=== PATIENT | male | born 1940 | race Caucasian/White ===

== ENCOUNTER 2020-09-19 10:23 | Day surgery (SDC) | payer MEDICARE, OTHER ==
[~2020-09-19] VITALS: Ht 165.1 cm; Wt 72.2 kg
[2020-09-19] VITALS (8 sets, daily range): BP systolic 97–130; BP diastolic 60–80
[~2020-09-19 10:23] MED LIST: APIX5TAB3 PO; BACL20TA PO; CARV-50 PO; CHOL50002 PO; DOCU-21 PO; DONE10TA44 PO; FLEC100T35 PO; FLO0.4C PO; FURO-150 PO; GLUC100017; MECO10005 PO; NITR0.4T51 SL; OXYB5TAB16 PO; PANT40TA54 PO; SAW/1TAB2 PO; VENL150C58 PO; VITA-268 PO
[2020-09-19] MEDS ORDERED: cefazolin/dext.iso 2gm/50ml 50 ML IV ONE (10:50)
[2020-09-19] MEDS ORDERED: VANCOMYCIN 1,500MG inj. 1,500 MG in normal saline 500ml IV soln 500 ML IV ONE (10:50)
[2020-09-19] MEDS ORDERED: FLUO-12 PO (11:04)
[2020-09-19] MEDS ORDERED: fentaNYL/PF 50MCG/1 ML 2ML syringe IV ONE (11:10)
[2020-09-19] MEDS ORDERED: MIDAZolam 1mg/ml 10ml vial IV ONE (11:10)
[2020-09-19 12:09] LABS: BASOPHILS # (AUTO) 0.1 X10'3 (0-0.2); BASOPHILS % (AUTO) 1.1 % (0-1); EOSINOPHILS # (AUTO) 0.1 X10'3 (0-0.9); EOSINOPHILS % (AUTO) 1.4 % (0-6); HEMATOCRIT 35.2 % (42.0-52.0); HEMOGLOBIN 11.8 g/dl (14.0-17.9); LYMPHOCYTES # (AUTO) 0.6 X10'3 (1.1-4.8); LYMPHOCYTES % (AUTO) 11.6 % (21-51); MEAN CORPUSCULAR HEMOGLOBIN 33.5 PG (27.0-31.0); MEAN CORPUSCULAR HGB CONC 33.4 g/dL (33.0-36.5); MEAN CORPUSCULAR VOLUME 100.2 FL (78-98); MEAN PLATELET VOLUME 7.8 FL (7.4-10.4); MONOCYTES # (AUTO) 0.8 X10'3 (0-0.9); NEUTROPHILS # (AUTO) 3.4 X10'3 (1.8-7.7); NEUTROPHILS % (AUTO) 69.9 % (42-75); PLATELET COUNT 218 X10'3 (140-440); RED BLOOD COUNT 3.52 X10'6 (4.70-6.10); WHITE BLOOD COUNT 4.9 X10'3 (4.5-11.0)
[2020-09-19 12:19] LABS: ALBUMIN 3.1 G/DL (3.4-5.0); ANION GAP 7 (8-16); BLOOD UREA NITROGEN 15 MG/DL (7-18); CALCIUM 8.9 MG/DL (8.5-10.1); CHLORIDE 103 MMOL/L (99-107); CREATININE 0.88 MG/DL (0.60-1.10); GLUCOSE 97 MG/DL (70-104); MAGNESIUM 2.1 MG/DL (1.5-2.4); POTASSIUM 3.2 MMOL/L (3.5-5.1); SODIUM 141 MMOL/L (135-145); TOTAL CARBON DIOXIDE 31.1 MMOL/L (24-32); eGFR 84 ML/MIN
[2020-09-19 13:03] LABS: ELLIPTOCYTES FEW; PLATELET ESTIMATE NORMAL; POLYCHROMASIA FEW; SCHISTOCYTES FEW
[2020-09-19] MEDS ORDERED: midazolam 2 mg/2 ml injection ONE ×2 (13:16→14:21)
[2020-09-19] MEDS ORDERED: vancomycin 1,000mg inj ONE (13:16)
[2020-09-19] MEDS ORDERED: LIDOcaine 1% W/epiNEPHrine 1:100,000 20ml vial ONE (13:16)
[2020-09-19] MEDS ORDERED: fentaNYL/PF 50MCG/1 ML 2ML syringe ONE ×2 (13:16→14:21)
[2020-09-19] MEDS ORDERED: iohexol 350 MG/ML 50ML vial IV ONE ×2 (13:47→14:21)
[2020-09-19] MEDS ORDERED: Thrombin (Bovine) 5,000 unit vial TP ONE (14:46)
[2020-09-19] MEDS ORDERED: HYDROcodone/acetaminophen 5mg/325mg tablet PO PRN (15:35)
[2020-09-19] MEDS ORDERED: normal saline 1000ml 1,000 ML IV SCH (15:35)
[2020-09-19] MEDS ORDERED: potassium Cl 20 mEq SR tablet PO STA (15:35)
[2020-09-19] MEDS ORDERED: HYDROcodone/acetaminophen 10/325mg tab PO PRN (15:35)
--- NOTE | 2020-09-19 15:37 | NUR ---
Dr. Lott at bedside. Order received for 40MEQ K PO once.
== END 2020-09-19 18:10 | disposition home or self-care (01) ==
LOC: SSTAY O 10:23
PROVIDERS: ATTEND Internal Medicine Cardiovascular Disease
DX: T82.191A Other mechanical complication of cardiac pulse generator (battery), initial encounter (principal); Y71.8 Miscellaneous cardiovascular devices associated with adverse incidents, not elsewhere classified; Y92.018 Other place in single-family (private) house as the place of occurrence of the external cause; I50.9 Heart failure, unspecified; I47.1 Supraventricular tachycardia; I25.10 Atherosclerotic heart disease of native coronary artery without angina pectoris; I49.5 Sick sinus syndrome; I45.10 Unspecified right bundle-branch block; I44.0 Atrioventricular block, first degree; Z95.0 Presence of cardiac pacemaker; I48.0 Paroxysmal atrial fibrillation; I42.8 Other cardiomyopathies; E78.5 Hyperlipidemia, unspecified; F32.9 Major depressive disorder, single episode, unspecified; G25.81 Restless legs syndrome; N40.0 Benign prostatic hyperplasia without lower urinary tract symptoms; Z95.1 Presence of aortocoronary bypass graft; Z79.01 Long term (current) use of anticoagulants; Z79.899 Other long term (current) drug therapy
CPT/HCPCS: 33225; 33229; 36415; 71045; 80048; 83735; 85025; 85610; 93005; 93306; 99152; 99153; C1769; C1887; C1894; C1900; C2621; J2250; J3010; J3370; J7030; Q9967; 33228; 85008; A4565; A4620; A6258